=== PATIENT | female | born 1955 | race Caucasian/White ===

== ENCOUNTER 2016-11-16 05:41 | Day surgery (SDC) | payer BC ==
[~2016-11-16] VITALS: Ht 162.6 cm; Wt 77.6 kg
[2016-11-16 06:56] VITALS: Ht 162.6 cm; Wt 77.6 kg
[2016-11-16] MEDS ORDERED: HYDROCHLOROTHIAZIDE (07:03)
[2016-11-16] MEDS ORDERED: OMEPRAZOLE (07:03)
[2016-11-16] MEDS ORDERED: LOSARTAN (07:03)
[2016-11-16 07:28] VITALS: BP 171/91; PULSE 81; RESP 18
[2016-11-16] MEDS ORDERED: MIDAZOLAM 1 MG/ML 2 ML INJ ONE (07:44)
[2016-11-16] MEDS ORDERED: FENTAnyl 50 MCG/ML VIAL ONE (07:44)
[2016-11-16 08:07] VITALS: BP 114/66; PULSE 63; RESP 18
--- NOTE | 2016-11-16 12:22 | GILP ---
DATE OF PROCEDURE: NAME OF PROCEDURE: Esophagogastroduodenoscopy and biopsy. SURGEON: Gokul Kyle MD PREOPERATIVE DIAGNOSES: 1. Abdominal pain. 2. Chronic heartburn. POSTOPERATIVE DIAGNOSES: 1. Hiatal hernia. 2. Gastroesophageal reflux disease. 3. Gastritis with erosions. 4. Gastric mucosal biopsies were taken for Helicobacter pylori test. INDICATION FOR THE PROCEDURE: Ms. Madie Chavarria is a 61-year-old female patient who gastelum d upper abdominal pain and chronic heartburn, not responding to therapy. The procedure and possible complications are well explained to the patient. The patient understood and consented to the procedure. DESCRIPTION OF PROCEDURE: Under the influence of fentanyl and Versed, the gastroscope was carefully introduced into the esophagus and under direct vision, it was advanced to the stomach and through t he pylorus into the duodenal bulb and descending duodenum. FINDINGS: ESOPHAGUS: The patient had hiatal hernia and gastroesophageal reflux disease. STOMACH: She had gastritis. Gastric mucosal biopsies were taken for H pylori test. DUODENUM: Normal. She tolerated the procedure very well and there was no complication from the procedure. At the end of the procedure, she was awake with stable vital signs and she was discharged home to the care of h family. IMPRESSION: 1. Hiatal hernia. 2. Gastroesophageal reflux disease. 3. Gastritis. 4. Gastric mucosal biopsies were taken for Helicobacter pylori test. PLAN: 1. Nexium 24 hours p.o. every morning. 2. Zantac 300 mg p.o. at bedtime. 3. Await H pylori test report. Dictated By: GOKUL LOPEZ/ANNI Conf#: [id number] DID#: [id number]
== END 2016-11-16 08:19 | disposition home or self-care (01) ==
LOC: GIL 05:41
PROVIDERS: ATTEND Internal Medicine Gastroenterology
DX: K44.9 Diaphragmatic hernia without obstruction or gangrene (principal); I10 Essential (primary) hypertension
CPT/HCPCS: 43239; 87081; J2250; J3010; Z7610